=== PATIENT | female | born 1970 | race Caucasian/White ===

== ENCOUNTER 2017-01-04 11:23 | Emergency (ER) | payer OTHER ==
[~2017-01-04 11:23] MED LIST: PROC-4 PO
[2017-01-04 11:39] VITALS: BP 116/77; PULSE 75; RESP 16; O2SAT 98
--- NOTE | 2017-01-04 11:55 | ED.REPORT ---
HPI-Eye Problem Date of Service Jan 04, 2017 ED Provider: Ciera Lacy MD 46 year old female presents to the ER accompanied by her complaining of four days of foreign body sensation in her left eye. This morning while in the shower she elicited purulent discharge from the lower lid. Discomfort and foreign body sensation persist. She does not voice any further medical complaints. Nursing Notes Stated Complaint: EYE PAIN Chief Complaint: Eye Nursing Notes Reviewed: Yes Allergies: Coded Allergies: Penicillins (Verified Allergy, Unknown, 01/04/17) Scheduled PRN Prochlorperazine Maleate (Compazine) 10 Mg Tablet 10 MG PO TID PRN PRN For Headache General Time Seen by MD: 11:54 Chief Complaint Left eye affected, Discharge... 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 Alcohol Use: Denies alcohol use Drug Use: Denies drug use Other Social History: Good social support, , Local resident Ambulatory Status Independent Review of Systems Constitutional: Denies: Chills, Fever Eyes: Reports: Discharge left, Eye pain left, Denies: Discharge right, Eye pain right, Redness bilateral, Visual loss bilateral Complete sys rev & neg: except as marked. Physical Exam Initial Vital Signs Vital Signs (First) Date Time Temp Pulse Resp B/P Pulse Ox O2 Delivery O2 Flow Rate FiO2 01/04/17 11:39 36.0 75 16 116/77 98 Room Air Initial VS: Reviewed General / Const: Well-developed, Well-nourished Neck: Supple, Non-tender, Full range of motion Extremities: Vascular intact, Neuro intact, No swelling, No tenderness Skin: Warm, Dry, No cyanosis Neurologic: Alert, Oriented, Nonfocal Psychiatric: Mood/affect normal, Behavior normal, Normal thought content Head / Eyes: Normocephalic, PERRL, EOMI, No periorbital swelling, No photophobia Eyelids: Positive: Sty present... (Lower left) Inflammation inside the Left lower lid. ENT: Airway patent, Mucous membranes moist, Pharynx NL Re-Eval/Medical Decision Source of Hx: Old records Re-Evaluation/Progress : Time of Eval: 12:05 Re-Evaluation/Progress Note: Discussed plan to discharge. Patient understands and agrees to the plan. Return precautions given. All other questions addressed. Counseled Regarding: Diagnosis, Lab results, Need for follow-up, When/why to return to ED Discharge & Departure Primary Impression: Stye Disposition: Home Discharge Condition All VS Reviewed: Yes Condition: Stable Patient Instructions: Fran (DC) Additional Instructions: You have fixed yourself this am with the "stuff" coming out. It will still be irritated for a day or two, but is not infected and doesn't need anything else. It is OK to use a warm washcloth to gently remove the debris from the eye. I hope you heal quickly. Get your kids to put your camera icon on your home screen:) Referrals: Angelique Alcala MD (PCP) Scribe Attestation Portions of this note were transcribed by Sin Faulkner. I, Dr. Lacy, personally performed the history, physical exam and medical decision-making; I reviewed and confirmed the accuracy of the information in the transcribed note. Signed by: Juan J Thomson, 01/04/2017 and 12:11 copies to: Angelique Alcala MD, Shawna L MD Jan 04, 2017 11:55 SIN FAULKNER Jan 04, 2017 12:08
== END 2017-01-04 12:16 | disposition home or self-care (01) ==
LOC: SED 11:23
DX: H00.016 Hordeolum externum left eye, unspecified eyelid (principal); F17.200 Nicotine dependence, unspecified, uncomplicated; Z85.9 Personal history of malignant neoplasm, unspecified; Z88.0 Allergy status to penicillin

== ENCOUNTER 2017-05-26 09:19 | Emergency (ER) | payer OTHER ==
[~2017-05-26] VITALS: Ht 162.6 cm; Wt 63.6 kg
[2017-05-26 09:30] VITALS: BP 100/75; PULSE 85; RESP 18; O2SAT 95
[2017-05-26] MEDS ORDERED: 0.9% Sodium Chloride 1,000 ML IV ONE (09:31)
[2017-05-26] MEDS ORDERED: MetoCLOpramide 5 mg/mL 2 mL Inj IVPUSH ONE (09:35)
--- NOTE | 2017-05-26 10:21 | ED.REPORT ---
HPI-Headache Date of Service May 26, 2017 ED Provider: Chano Cunningham MD The patient is a 47 year old female with history of migraines, who presents to the emergency department complaining of a headache that began this morning. She has also experienced photophobia, nausea, vomiting, and muscle cramps. Her symptoms are not as bad as her usual migraines. 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 She is not good about drinking water. She denies fever , chills, cough, sore throat, neck stiffness, abdominal pain, shortness of breath or chest pain. She is currently on her period. Nursing Notes Stated Complaint: MIGRAINE,VOMITING,MUSCLE CRAMPS Chief Complaint: General Complaint Nursing Notes Reviewed: Yes Allergies: Coded Allergies: Penicillins (Verified Allergy, Unknown, 01/04/17) Scheduled PRN Prochlorperazine Maleate (Compazine) 10 Mg Tablet 10 MG PO TID PRN PRN For Headache General Time Seen by MD: 09:30 Chief Complaint Headache Hx Obtained From: Patient, Spouse Arrived By: Walk-in Sudden in Onset?: Yes Onset Occurred: 5 - 8 hours ago Symptom Duration: Since onset Location: : Generalized Quality: Painful Severity: Current: Moderate Severity: Maximum: Moderate Recent Healthcare: No recent hospitalization Similar Sx Previous: Yes Past Medical History Past Medical History Hiatal hernia Duodenitis Esophagitis and Gastritis Hx of migraines Reports: Cancer Past Surgical History Esophagogastroduodenoscopy in the past Reports: Tubal ligation Family History noncontributory Smoking History Current Every Day Smoker Social History 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 Alcohol Use: Denies alcohol use Drug Use: Denies drug use Other Social History: Good social support, , Local resident Ambulatory Status Independent Review of Systems Review of Systems Note: +muscle cramps Constitutional: Denies: Chills, Fever Ears / Nose / Throat: Denies: Sore throat GI: Reports: Nausea, Vomiting, Denies: Abdominal pain Musculoskeletal: Denies: Neck pain Neurologic: Reports: Headache Complete sys rev & neg: except as marked. Respiratory: Denies: Non-productive cough, Shortness of breath Cardiovascular: Denies: Chest pain Physical Exam Initial Vital Signs Vital Signs (First) Date Time Temp Pulse Resp B/P Pulse Ox O2 Delivery O2 Flow Rate FiO2 05/26/17 09:30 36.5 85 18 100/75 95 Room Air Initial VS: Reviewed ENT: Mucous membranes moist, Conjunctiva normal, No scleral icterus Respiratory: Breath sounds normal, Clear to auscultation, No respiratory distress Cardiovascular: Regular rate & rhythm, Heart sounds normal, Intact distal pulses Abdomen / GI: Soft, Non-tender, No guarding, No rebound, No distention Lymphatic: No lymphadenopathy Extremities: Vascular intact, Neuro intact, No swelling, No tenderness Skin: Warm, Dry, No cyanosis Psychiatric: Mood/affect normal, Behavior normal, Normal thought content General/Constitutional: Awake, Alert Head / Eyes: Normocephalic, PERRL, EOMI, No nystagmus, No photophobia, Conjunctiva NL, Temporal arteries NL Neck: Atraumatic, Supple, No meningismus, Full range of motion, No swelling, Non-tender, No masses Neurologic: Oriented X3, Speech NL, No motor deficits, No sensory deficits, CN II - XII intact, Cerebellar NL, Memory NL Interpretation & Diagnostics Lab Results Interpretation Test 05/26/17 09:45 Hold Purple Top Tube Received (Received) Hold Blue Top Tube Received (Received) Hold [place] Top Tube Received (Received) Re-Eval/Medical Decision Med Decision/Clinical Course In summary, the patient is a relatively healthy 47-year-old female with past medical history significant for migraine headache*, who presents with headache is similar in nature to prior headaches. Our primary and secondary assessment reveals an awake, alert patient in no acute distress. Hemodynamically stable and afebrile. Exam reveals normal neurologic exam. Suspect the patient's headache represents a migraine or tension type headache. 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 Based on this, I feel that imaging would be low yield and is not warranted at this time. Discussed the risks and benefits of this with the patient who is in agreement. Also discussed with the patient at length that if symptoms change, worsen, or persist, should return to the ER for reevaluation. They understand and agree with the plan. Given the patient's workup, feel they are safe for discharge. The patient was given 1 L of normal saline, 30 mg of IV Toradol, Reglan and Benadryl. She reported that her headache completely resolved. Prior to discharge follow-up and return precautions were reviewed in detail with the patient who verbalized understanding and agreement with the plan. The patient was discharged in stable condition. Source of Hx: Old records, Family Re-Evaluation/Progress : Time of Eval: 10:26 Re-Evaluation/Progress Note: Rechecked the patient. She is feeling better. Discussed plan for discharge. All questions were addressed. Counseled Regarding: Diagnosis, Need for follow-up, When/why to return to ED Discharge & Departure Impression: Primary Impression: Headache Headache type: unspecified Headache chronicity pattern: acute headache Intractability: not intractable Qualified Code: R51 - Headache Additional Impressions: Migraine headache Migraine type: unspecified Status migrainosus presence: without status migrainosus Intractability: not intractable Qualified Code: G43.909 - Migraine, unspecified, not intractable, without status migrainosus Light sensitivity History of migraine headaches Disposition: Home Discharge Condition All VS Reviewed: Yes Condition: Stable Patient Instructions: Acute Headache (ED) Additional Instructions: Thank you for seeking care at the emergency room. Our primary goal today in the ED was to evaluate you for any life-threatening conditions. Your evaluation was reassuring. You should follow-up with your primary doctor in the next week. You should return to the ED immediately if you develop increased pain, fevers, vomiting, abdominal pain, lightheadedness, weakness or any other concerning signs or symptoms. Thank you for letting us partake in your care today Referrals: Angelique Alcala MD (PCP) [place] Attestation Portions of this note were transcribed by Debora Ballard. I, Dr. Cunningham personally performed the history, physical exam and medical decision-making; I reviewed and confirmed the accuracy of the information in the transcribed note. Signed by: Juan J Taylor, 05/26/2017 at 1035. copies to: Angelique Alcala MD, Beck O MD May 26, 2017 10:21 Debora Ballard May 26, 2017 10:28
[2017-05-26 10:41] VITALS: BP 105/71; PULSE 74; RESP 14; O2SAT 99
== END 2017-05-26 10:37 | disposition home or self-care (01) ==
LOC: SED 09:19
DX: G43.909 Migraine, unspecified, not intractable, without status migrainosus (principal); H53.149 Visual discomfort, unspecified; F17.200 Nicotine dependence, unspecified, uncomplicated; Z88.0 Allergy status to penicillin
CPT/HCPCS: 96361; 96374; 96375; 99284; J1200; J1885; J2765; J7030